=== PATIENT | male | born 1965 | race Caucasian/White ===

== ENCOUNTER 2016-12-29 08:42 | Day surgery (SDC) | payer OTHER ==
[~2016-12-29 08:42] MED LIST: Lidocaine 1% w Epi 1:100,000 Inj ONE; Oxymetazoline 0.05% Nasal Spray (30 ml) NS ONE; ceFAZolin IV 1 gm in Dextrose 50 ML IVPB ONE
[2016-12-29 09:03] VITALS: BMI 33.2
[2016-12-29] MEDS ORDERED: EPINEPHrine 1:1000 Nasal Sol(30mL) ONE (09:03)
[2016-12-29] MEDS ORDERED: methylPREDNISolone 100 MG in Sodium Chloride 0.9% 100 ML IVPB ONE (09:05)
[2016-12-29] MEDS ORDERED: Acetaminophen-Codeine 300/30 mg Tab PO PRN (09:32)
[2016-12-29] MEDS ORDERED: Dextrose 5%/0.45% NS 1,000 ML IV SCH (09:45)
[2016-12-29] MEDS ORDERED: Propofol 10 mg/ml Inj (20 ML) ONE (10:23)
[2016-12-29] MEDS ORDERED: Midazolam 2 MG/2 ML VIAL ONE (10:23)
[2016-12-29] MEDS ORDERED: Lidocaine Hydrochloride 10 ML INJ ONE (10:25)
[2016-12-29] MEDS ORDERED: Lactated Ringer's 1,000 ML IV ONE ×2 (10:30→11:15)
[2016-12-29] MEDS ORDERED: Succinylcholine Chloride 20 mg/ml Syr (5 ml) IV ONE (10:31)
[2016-12-29] MEDS ORDERED: HYDROmorphone 0.5 mg/0.5 ml ISec IVP PRN (12:07)
[2016-12-29 14:51] VITALS: BP 120/70; PULSE 62; RESP 18; TEMP 97.2; O2SAT 100
--- NOTE | 2016-12-29 16:38 | OP ---
PROCEDURE DATE: 12/29/2016 PREOPERATIVE DIAGNOSES: Deviated septum, enlarged turbinates, sinusitis. POSTOPERATIVE DIAGNOSES: Deviated septum, enlarged turbinates, sinusitis. PROCEDURE: Septoplasty, bilateral endoscopic maxillary antrostomy, bilateral endoscopic ethmoidectom y, bilateral endoscopic inferior turbinate reduction. PROCEDURE: The patient was brought in room, placed in supine position. Anesthesia was initiated thr ough an ET tube. Afrin-soaked pledgets were inserted into the nasal cavity and remained there for at least 5 minutes and then removed. Navigation was set up and used throughout the case in order to en sure that the skull base and orbits were not entered. The patient was draped in usual manner. The s eptum was injected with lidocaine with epinephrine on both sides. A Natural Steps's incision was made on t he left and a mucoperichondrial flap was raised. A vertical incision was made in the cartilage leavi ng a 1.5 cm anterior and superior strut and a mucoperichondrial flap was raised on the other side. D eviated portion of the bone and cartilage were removed using forceps and chisel. Next, a quilting kunz ture was used to suture the 2 flaps together and close the Natural Steps's incision. A 0-degree scope was inserted into the nasal cavity. The right and left inferior turbinates were reduced in size using sc issors, going from the inferior to superior, anterior to posterior direction, first on the left and t hen on the right. Bleeding was controlled using suction cautery. The middle turbinate was injected with lidocaine with epinephrine on both sides and medialized. Uncinate process was medialized using a Erie elevator and removed using forceps. Ethmoid bulla was entered inferomedially going posterior ly to the basal lamella, then anteriorly and superiorly until the ethmoid bulla was removed. Next, t he basal lamella was entered. Posterior ethmoid cells were entered and opened. Skull base was ident ified and followed anteriorly all the way to the area of anterior ethmoid air cells. Curved suction hooked up to navigation was used to locate the maxillary antrum which was noted to be stenosed and op ened using forceps. Bleeding was controlled using ____ soaked pledgets and suction cautery. Attention was turned to the other side. The middle turbinate was medialized using a Erie elevator. The uncinate process was medialized using a Erie elevator and removed using forceps. Ethmoid bulla was entered inferomedially. Going posteriorly to basal lamella, then anteriorly and superiorly unti l the ethmoid bulla was removed. The basal lamella was entered. Posterior ethmoid cells were entere d and opened. Skull base was identified and followed anteriorly all the way to the area of the anter ior ethmoid air cells. Curved suction hooked up to navigation was used to locate the maxillary antru m which was noted to be completely stenosed and opened using forceps. Bleeding was controlled using ____ soaked pledgets and suction cautery. Splints were placed. Stents were placed. The patient was taken off anesthesia and taken to recovery room in stable manner. Carlos Kimble MD cc: [id number] TT: 12/29/2016 16:38:06
== END 2016-12-29 15:03 | disposition home or self-care (01) ==
LOC: C.SDS 08:42
PROVIDERS: ATTEND Otolaryngology
DX: J32.9 Chronic sinusitis, unspecified (principal); J34.2 Deviated nasal septum; J34.3 Hypertrophy of nasal turbinates
CPT/HCPCS: 30802; 31255; 31256; 88304; J0690; J1170; J2250; J2704; J2930; J3010; J7120